=== PATIENT | female | born 1945 | race Two or more races ===

== ENCOUNTER 2023-08-18 18:02 | Emergency (ER) | payer OTHER ==
[~2023-08-18] VITALS: Ht 152.4 cm; Wt 47.6 kg
[2023-08-18] MEDS ORDERED: DIOVAN320 MG PO (18:40)
[2023-08-18] MEDS ORDERED: GLIMEPIRIDE4 MG PO (18:41)
[2023-08-18] MEDS ORDERED: GLUMETZA500 MG PO (18:41)
[2023-08-18] MEDS ORDERED: TOPROL XL25 M1 PO (18:41)
[2023-08-18] MEDS ORDERED: ISOSORBIDE DINI30 MG PO (18:41)
[2023-08-18] MEDS ORDERED: SYNTHROID75 MCG PO (18:42)
[2023-08-18] MEDS ORDERED: LIPOFEN150 MG PO (18:42)
[2023-08-18] MEDS ORDERED: PROTONIX40 M1 PO (18:42)
[2023-08-18] MEDS ORDERED: LIPITOR40 M1 PO (18:42)
[2023-08-18] MEDS ORDERED: SOLIQUA 100 UNIT3 ML SQ (18:42)
[2023-08-18] MEDS ORDERED: FOSAMAX70 MG PO (18:43)
[2023-08-18] MEDS ORDERED: VITAMIN D3125 MC1 PO (18:43)
[2023-08-18] MEDS ORDERED: PREDNISONE 5MG PO (18:44)
[2023-08-18] MEDS ORDERED: ROPINIROLE HCL0.5 MG PO (18:44)
[2023-08-18] MEDS ORDERED: ACTEMRA AC162 MG/0.9 SQ (18:44)
[2023-08-18] MEDS ORDERED: NEURONTIN300 MG PO (18:45)
[2023-08-18 20:37] LABS: URINE APPEARANCE Clear; URINE BILIRRUBIN Negative (NEGATIVE); URINE BLOOD Negative; URINE COLOR Yellow; URINE GLUCOSE Negative (NEGATIVE); URINE LEUKOCYTE Negative; URINE NITRATE Negative; URINE PROTEIN Negative (NEGATIVE); URINE UROBILINOGEN 0.2 E.U./dl
[2023-08-18 20:55] LABS: URINE BACTERIA 3.7 uL (0.0-1933); URINE RBC 0.1 uL (0.0-20.8); URINE WBC 1.3 uL (0.0-23.2)
[2023-08-18 21:31] LABS: ALBUMIN 4.2 gm/dL (3.4-5.0); BILIRUBIN TOTAL 0.52 mg/dL (0.3-1.2); CALCIUM 9.5 mg/dL (8.5-10.1); CREATININE SERUM 0.59 mg/dL (0.55-1.02); GFR 99.1; POTASSIUM 3.62 mEq/L (3.5-5.1); TOTAL PROTEIN 7.2 gm/dL (6.4-8.2)
[2023-08-18 21:49] LABS: HEMATOCRIT 35.8 % (36.0-45.00); MEAN CORPUSCULAR HEMOGLOBIN 30.7 pg (27.00-32.0); MEAN CORPUSCULAR HGB CONC 34.9 g/dl (32.0-36.0); PLATELET COUNT 219 K/uL (150-450); RED BLOOD COUNT 4.07 M/uL (4.00-6.00); RED CELL DISTRIBUTION WIDTH 12.8 % (11.5-14.5)
[2023-08-18 21:54] LABS: HEMOGLOBIN 12.5 g/dL (12.0-15.00)
== END 2023-08-18 22:28 ==
LOC: ER 18:03
PROVIDERS: General Practice; Nurse Practitioner Family
DX: J10.1 Influenza due to other identified influenza virus with other respiratory manifestations (principal); I10 Essential (primary) hypertension; R19.7 Diarrhea, unspecified; Z20.822 Contact with and (suspected) exposure to COVID-19; E03.8 Other specified hypothyroidism; E11.9 Type 2 diabetes mellitus without complications; Z79.84 Long term (current) use of oral hypoglycemic drugs; Z88.0 Allergy status to penicillin
CPT/HCPCS: 36415; 70450; 93005; 96365; 96366; 99284; J2405; J3490 ×2; J7042

== ENCOUNTER 2023-08-24 08:45 | Outpatient (CLI) | payer OTHER ==
[~2023-08-24 08:45] MED LIST: ACTEMRA AC162 MG/0.9 SQ; DIOVAN320 MG PO; FOSAMAX70 MG PO; GLIMEPIRIDE4 MG PO; GLUMETZA500 MG PO; ISOSORBIDE DINI30 MG PO; LIPITOR40 M1 PO; LIPOFEN150 MG PO; NEURONTIN300 MG PO; PREDNISONE 5MG PO; PROTONIX40 M1 PO; ROPINIROLE HCL0.5 MG PO; SOLIQUA 100 UNIT3 ML SQ; SYNTHROID75 MCG PO; TOPROL XL25 M1 PO; VITAMIN D3125 MC1 PO
[2023-08-24 09:40] LABS: HEMATOCRIT 40.2 % (36.0-45.00); HEMOGLOBIN 13.7 g/dL (12.0-15.00); MEAN CELL VOLUME 88.8 fL (80.00-100.00); MEAN CORPUSCULAR HEMOGLOBIN 30.3 pg (27.00-32.0); MEAN CORPUSCULAR HGB CONC 34.1 g/dl (32.0-36.0); PLATELET COUNT 308 K/uL (150-450); RED BLOOD COUNT 4.52 M/uL (4.00-6.00); RED CELL DISTRIBUTION WIDTH 13.4 % (11.5-14.5)
[2023-08-24 09:43] LABS: URINE APPEARANCE Clear; URINE BILIRRUBIN Negative (NEGATIVE); URINE BLOOD Negative; URINE COLOR Dark Yellow; URINE LEUKOCYTE Trace; URINE NITRATE Negative; URINE PROTEIN Trace (NEGATIVE)
[2023-08-24 09:47] LABS: URINE BACTERIA 369.1 uL (0.0-1933); URINE EPITHELIAL CELLS 29.5 uL (0.0-38.8); URINE RBC 3.3 uL (0.0-20.8); URINE WBC 8.3 uL (0.0-23.2)
[2023-08-24 10:22] LABS: URINE GLUCOSE 100 MG/DL (NEGATIVE)
[2023-08-24 10:29] LABS: ALBUMIN 4.1 gm/dL (3.4-5.0); ALKALINE PHOSPHATASE 66 U/L (50-136); ALT/SGPT 90 U/L (12-78); ANION GAP 6 (10.0-20.0); AST/SGOT 35 U/L (15-37); BILIRUBIN TOTAL 0.61 mg/dL (0.3-1.2); BLOOD UREA NITROGEN 15 mg/dL (7-18); BUN CREA RATIO 17 (7.0-25.0); CARBON DIOXIDE 32 mEq/L (21-32); CHLORIDE 107 mmol/L (98-107); CHOL HDL RATIO 4.4 (0-5.0); CHOLESTEROL 160 mg/dL (0-200); CREATININE SERUM 0.88 mg/dL (0.55-1.02); FREE TRIODOTIRONINE 2.36 pg/ml (2.18-3.98); GFR 62.47; GLOBULINA 2.5 G/DL (2.4-3.5); GLUCOSE FASTING 136 mg/dL (65-100); HDL 36 mg/dl (40-60); LDL 93 mg/dl (0-130); OSMOLALITY SERUM 284 MOSM/KG (275-295); POTASSIUM 4.31 mEq/L (3.5-5.1); SODIUM 141 mmol/L (136-145); TOTAL PROTEIN 6.6 gm/dL (6.4-8.2); TRIGLYCERIDES 157 mg/dL (0-150); VLDL 31 (0-39)
[2023-08-24 10:35] LABS: C-REACTIVE PROTEIN < 0.29 MG/DL (0.00-0.29)
== END 2023-08-24 08:46 | disposition home or self-care (01) ==
LOC: LAB 08:45
PROVIDERS: ATTEND Specialist
DX: N39.9 Disorder of urinary system, unspecified (principal); D64.89 Other specified anemias; M00.80 Arthritis due to other bacteria, unspecified joint; Z13.220 Encounter for screening for lipoid disorders; M05.80 Other rheumatoid arthritis with rheumatoid factor of unspecified site; E11.21 Type 2 diabetes mellitus with diabetic nephropathy; N25.81 Secondary hyperparathyroidism of renal origin; E03.8 Other specified hypothyroidism; E11.69 Type 2 diabetes mellitus with other specified complication

== ENCOUNTER 2023-08-24 09:06 | Outpatient (CLI) | payer OTHER | END 2023-08-24 09:14 | disposition home or self-care (01) | LOC: RAD 09:06 | PROVIDERS: ATTEND Specialist | DX: J45.20 Mild intermittent asthma, uncomplicated (principal) ==

== ENCOUNTER 2024-03-21 07:24 | Outpatient (CLI) | payer OTHER ==
[2024-03-21 08:54] LABS: HEMATOCRIT 37.9 % (36.0-45.00); HEMOGLOBIN 13.2 g/dL (12.0-15.00); MEAN CELL VOLUME 88.6 fL (80.00-100.00); MEAN CORPUSCULAR HEMOGLOBIN 30.9 pg (27.00-32.0); MEAN CORPUSCULAR HGB CONC 34.8 g/dl (32.0-36.0); PLATELET COUNT 284 K/uL (150-450); RED BLOOD COUNT 4.28 M/uL (4.00-6.00); RED CELL DISTRIBUTION WIDTH 13.7 % (11.5-14.5)
[2024-03-21 09:30] LABS: ALBUMIN 4.2 gm/dL (3.4-5.0); BILIRUBIN TOTAL 0.69 mg/dL (0.3-1.2); BILIRUBIN,CONJUGATED 0.16 mg/dL (0.0-0.2); BILIRUBIN,UNCONJUGATED 0.53 mg/dL (0.0-0.6); CALCIUM 9.4 mg/dL (8.5-10.1); CHOL HDL RATIO 3.3 (0-5.0); CREATININE SERUM 0.6 mg/dL (0.55-1.02); GFR 96.94; GLOBULINA 2.5 G/DL (2.4-3.5); T4 FREE 0.78 NG/ML (0.76-1.46); TOTAL PROTEIN 6.7 gm/dL (6.4-8.2); TSH 2.34 uIU/mL (0.358-3.74)
== END 2024-03-21 07:32 | disposition home or self-care (01) ==
LOC: LAB 07:24
PROVIDERS: ATTEND Specialist
DX: E03.9 Hypothyroidism, unspecified (principal); E78.2 Mixed hyperlipidemia; D64.9 Anemia, unspecified; E11.65 Type 2 diabetes mellitus with hyperglycemia; K75.81 Nonalcoholic steatohepatitis (NASH); N25.81 Secondary hyperparathyroidism of renal origin; E11.21 Type 2 diabetes mellitus with diabetic nephropathy

== ENCOUNTER 2024-06-22 06:41 | Outpatient (CLI) | payer OTHER ==
[2024-06-22 07:41] LABS: HEMATOCRIT 41.2 % (36.0-45.00); HEMOGLOBIN 14.3 g/dL (12.0-15.00); MEAN CORPUSCULAR HEMOGLOBIN 31.2 pg (27.00-32.0); MEAN CORPUSCULAR HGB CONC 34.7 g/dl (32.0-36.0); PLATELET COUNT 290 K/uL (150-450); RED BLOOD COUNT 4.58 M/uL (4.00-6.00); RED CELL DISTRIBUTION WIDTH 12.6 % (11.5-14.5)
[2024-06-22 08:13] LABS: PH,URINE 5.5 (5.0-8.0); URINE APPEARANCE Clear; URINE BILIRRUBIN Negative (NEGATIVE); URINE BLOOD Negative; URINE COLOR Yellow; URINE KETONE Negative (NEGATIVE); URINE LEUKOCYTE Negative; URINE NITRATE Negative; URINE PROTEIN Negative (NEGATIVE); URINE UROBILINOGEN 0.2 E.U./dl
[2024-06-22 08:15] LABS: URINE BACTERIA 243.1 uL (0.0-1933); URINE EPITHELIAL CELLS 14.8 uL (0.0-38.8); URINE WBC 8.1 uL (0.0-23.2)
[2024-06-22 08:33] LABS: CREATININE URINE RANDOM 88.2 MG/DL (30-125)
[2024-06-22 08:54] LABS: URINE GLUCOSE >=1000 MG/DL (NEGATIVE); URINE RBC 1.5 uL (0.0-20.8)
[2024-06-22 09:03] LABS: ALBUMIN 4.2 gm/dL (3.4-5.0); BILIRUBIN TOTAL 0.7 mg/dL (0.3-1.2); CALCIUM 9.7 mg/dL (8.5-10.1); CREATININE SERUM 0.59 mg/dL (0.55-1.02); FREE TRIODOTIRONINE 2.55 pg/ml (2.18-3.98); GFR 98.83; GLOBULINA 2.4 G/DL (2.4-3.5); POTASSIUM 4.04 mEq/L (3.5-5.1); TOTAL PROTEIN 6.6 gm/dL (6.4-8.2); TSH 4.46 uIU/mL (0.358-3.74)
== END 2024-06-22 06:42 | disposition home or self-care (01) ==
LOC: LAB 06:41
PROVIDERS: ATTEND Specialist
DX: N25.81 Secondary hyperparathyroidism of renal origin (principal); E11.69 Type 2 diabetes mellitus with other specified complication; E11.21 Type 2 diabetes mellitus with diabetic nephropathy; E03.8 Other specified hypothyroidism; N39.9 Disorder of urinary system, unspecified; D64.89 Other specified anemias; E11.22 Type 2 diabetes mellitus with diabetic chronic kidney disease